=== PATIENT | male | born 1980 | race Caucasian/White ===

== ENCOUNTER 2017-02-05 10:33 | Observation (INO) | payer OTHER ==
[2017-02-05] MEDS ORDERED: Sodium Chloride 0.9% 1,000 ML IV STA (11:03)
[2017-02-05 11:06] LABS: ADD MANUAL DIFF? NO
[2017-02-05 11:11] LABS: BASO # 0.01 K/mm3 (0.0-2.0); BASO % 0.1 % (0.0-3.0); EOS % 0.4 % (1.5-5.0); GRAN # 7.54 (1.4-6.5); GRAN % 82.5 % (50.0-68.0); HEMATOCRIT 42.3 % (42.0-52.0); LYMPH % 10.9 % (22.0-35.0); MEAN CELL VOLUME 77.3 fL (80.0-105.0); MEAN CORPUSCULAR HEMOGLOBIN 27.1 pg (25.0-35.0); MEAN PLATELET VOLUME 10.4 fl (7.0-11.0); MONO # 0.6 (0.1-0.6); MONO % 6.1 % (1.0-6.0); PLATELET COUNT 265 10^3/uL (120.0-450.0); RED CELL DISTRIBUTION WIDTH 13.1 % (11.5-14.5); WHITE BLOOD COUNT 9.2 10^3/ul (4.5-11.0)
[2017-02-05 11:25] LABS: ALB/GLOB RATIO 1.3 (1.1-1.8); ALKALINE PHOSPHATASE 81 U/L (38-133); ALT/SGPT 61 U/L (7-56); AST/SGOT 31 U/L (15-59); BILIRUBIN,TOTAL 0.9 mg/dL (0.2-1.3); BLOOD UREA NITROGEN 18 mg/dL (7-21); CALCIUM 9.7 mg/dL (8.4-10.5); CARBON DIOXIDE 23 mmol/L (21-33); CHLORIDE 104 mmol/L (98-107); GFR AFRICAN-AMERICAN > 60; GLUCOSE,RANDOM 107 mg/dL (70-110); LIPASE 99 U/L (23-300); POTASSIUM 4.1 mmol/L (3.6-5.0); SODIUM 138 mmol/L (132-148); TOTAL PROTEIN 8.2 g/dL (5.8-8.3)
[2017-02-05] MEDS ORDERED: Morphine 2 mg/ml ISec IVP STA (11:43)
[2017-02-05] MEDS ORDERED: Iohexol 350 MG/100 ML VIAL ONE (11:49)
--- NOTE | 2017-02-05 13:54 | CT ---
PROCEDURE: CT Abdomen and Pelvis with contrast HISTORY: RLQ pain r/o Appy COMPARISON: None. TECHNIQUE: Contrast dose: Radiation dose: Total exam DLP = mGy-cm. This CT exam was performed using one or more of the following dose reduction techniques: Automated exposure control, adjustment of the mA and/or kV according to patient size, and/or use of iterative reconstruction technique. FINDINGS: LOWER THORAX: Unremarkable. LIVER: Unremarkable. No gross lesion or ductal dilatation. GALLBLADDER AND BILE DUCTS: Unremarkable. PANCREAS: Unremarkable. No gross lesion or ductal dilatation. SPLEEN: Unremarkable. ADRENALS: Unremarkable. No mass. KIDNEYS AND URETERS: Unremarkable. No hydronephrosis. No solid mass. VASCULATURE: Unremarkable. No aortic aneurysm. BOWEL: Unremarkable. No obstruction. No gross mural thickening. APPENDIX: Appendicolith present with enhancement and thickening of the appendix consistent with acute appendicitis.. PERITONEUM: Unremarkable. No free fluid. No free air. LYMPH NODES: Unremarkable. No enlarged lymph nodes. BLADDER: Unremarkable. REPRODUCTIVE: Unremarkable. BONES: No acute fracture. OTHER FINDINGS: None. IMPRESSION: Acute appendicitis.
[2017-02-05] MEDS ORDERED: HYDROmorphone 1 mg/ml ISec IVP STA (14:01)
--- NOTE | 2017-02-05 14:02 | ED PDOC ---
Arrival/HPI - General Chief Complaint: Abdominal Pain Time Seen by Provider: 02/05/17 11:01 Historian: Patient, Spouse - History of Present Illness Narrative History of Present Illness (Text): 02/05/17 11:58 This 36 yo male without significant medical history, presents to this ED c/o abdominal pain since last night. Patient stated pain started epigastric area last night. Pain is now located RLQ area. Patient denies vomiting, diarrhea or rectal bleeding. Time/Duration: Other (since last night) Symptom Course: Worsening Context: Home Past Medical History - Provider Review Nursing Documentation Reviewed: Yes - Infectious Disease Hx of Infectious Diseases: None - Psychiatric Hx Substance Use: No - Anesthesia Hx Anesthesia: No Hx Anesthesia Reactions: No Hx Malignant Hyperthermia: No Family/Social History - Physician Review Nursing Documentation Reviewed: Yes Family/Social History: No Known Family HX Smoking Status: Never Smoked Hx Alcohol Use: No Hx Substance Use: No Allergies/Home Meds Allergies/Adverse Reactions: Allergies No Known Allergies Allergy (Verified 02/05/17 10:47) Home Medications: Home Meds Medication Instructions Recorded Confirmed No Known Home Med 02/05/17 02/05/17 Review of Systems - Review of Systems Constitutional: Normal. absent: Fatigue, Weight Change, Fevers Eyes: Normal ENT: Normal Respiratory: Normal. absent: SOB, Cough, Sputum Cardiovascular: Normal. absent: Chest Pain, Palpitations Gastrointestinal: Abdominal Pain, Nausea. absent: Diarrhea, Vomiting Genitourinary Male: Normal. absent: Dysuria, Frequency, Hematuria Musculoskeletal: Normal Skin: Normal Neurological: Normal Endocrine: Normal Hemo/Lymphatic: Normal Psychiatric: Normal Physical Exam Vital Signs Temp Pulse Resp BP Pulse Ox 02/05/17 14:30 68 18 128/74 97 02/05/17 12:30 62 18 118/70 99 02/05/17 10:41 97.6 F 59 L 20 124/79 98 Temperature: Afebrile Blood Pressure: Normal Pulse: Regular Respiratory Rate: Normal Appearance: Positive for: Well-Appearing, Non-Toxic, Comfortable Pain Distress: None Mental Status: Positive for: Alert and Oriented X 3 - Systems Exam Head: Present: Atraumatic, Normocephalic Pupils: Present: PERRL Extroacular Muscles: Present: EOMI Conjunctiva: Present: Normal Mouth: Present: Moist Mucous Membranes Neck: Present: Normal Range of Motion Respiratory/Chest: Present: Clear to Auscultation, Good Air Exchange. No: Respiratory Distress, Accessory Muscle Use Cardiovascular: Present: Regular Rate and Rhythm, Normal S1, S2. No: Murmurs Abdomen: Present: Tenderness (mild RLQ tenderness), Normal Bowel Sounds, Rebound , Guarding, McBurney's Point Tender. No: Distention, Peritoneal Signs, Rovsing' s Sign Present, Hernias, Feeding Tubes Back: Present: Normal Inspection. No: CVA Tenderness Upper Extremity: Present: Normal Inspection. No: Cyanosis, Edema Lower Extremity: Present: Normal Inspection. No: Edema Neurological: Present: GCS=15, CN II-XII Intact, Speech Normal Skin: Present: Warm, Dry, Normal Color. No: Rashes Psychiatric: Present: Alert, Oriented x 3, Normal Insight, Normal Concentration Medical Decision Making ED Course and Treatment: 02/05/17 14:08 I spoke with surgical manager regarding CT scan which demonstrates Appendicitis I spoke with Dr. Gandara who is aware of case, and he agrees with admission. Re-evaluation Time: 14:10 Reassessment Condition: Re-examined, Improving,but remains with symptoms - Lab Interpretations Lab Results: 02/05/17 11:06 02/05/17 11:06 Lab Results 02/05/17 11:06: Sodium 138, Potassium 4.1, Chloride 104, Carbon Dioxide 23, Anion Gap 15, BUN 18, Creatinine 0.8, Est GFR ( Amer) > 60, Est GFR (Non- Af Amer) > 60, Random Glucose 107, Calcium 9.7, Total Bilirubin 0.9, AST 31, ALT 61 H, Alkaline Phosphatase 81, Total Protein 8.2, Albumin 4.6, Globulin 3.5 , Albumin/Globulin Ratio 1.3, Lipase 99 02/05/17 11:06: WBC 9.2, RBC 5.47, Hgb 14.8, Hct 42.3, MCV 77.3 L, MCH 27.1, MCHC 35.0, RDW 13.1, Plt Count 265, MPV 10.4, Gran % 82.5 H, Lymph % (Auto) 10.9 L, [place] % (Auto) 6.1 H, Eos % (Auto) 0.4 L, Baso % (Auto) 0.1, Gran # 7.54 H, Lymph # 1.0 L, [place] # 0.6, Eos # 0.0, Baso # 0.01 I have reviewed the lab results: Yes Interpretation: No clinic. lab abnormalty - RAD Interpretation Narrative RAD Interpretations (Text): 02/05/17 13:59 Accession No. : [id number] Patient Name / ID : NICOLETTE SÁNCHEZ / [id number] Exam Date : 02/05/2017 13:15:26 ( Approved ) Study Comment : Sex / Age : M / 36Y Creator : Trevon Mosqueda MD Dictator : Trevon Mosqueda MD Conveyor Feeder Offbearer : High Lead Yarder : Trevon Mosqueda MD Approver2 : Report Date : 02/05/2017 13:53:25 My Comment : PROCEDURE: CT Abdomen and Pelvis with contrast HISTORY: RLQ pain r/o Appy COMPARISON: None. TECHNIQUE: Contrast dose: Radiation dose: Total exam DLP = mGy-cm. This CT exam was performed using one or more of the following dose reduction techniques: Automated exposure control, adjustment of the mA and/or kV according to patient size, and/or use of iterative reconstruction technique. FINDINGS: LOWER THORAX: Unremarkable. LIVER: Unremarkable. No gross lesion or ductal dilatation. GALLBLADDER AND BILE DUCTS: Unremarkable. PANCREAS: Unremarkable. No gross lesion or ductal dilatation. SPLEEN: Unremarkable. ADRENALS: Unremarkable. No mass. KIDNEYS AND URETERS: Unremarkable. No hydronephrosis. No solid mass. VASCULATURE: Unremarkable. No aortic aneurysm. BOWEL: Unremarkable. No obstruction. No gross mural thickening. APPENDIX: Appendicolith present with enhancement and thickening of the appendix consistent with acute appendicitis.. PERITONEUM: Unremarkable. No free fluid. No free air. LYMPH NODES: Unremarkable. No enlarged lymph nodes. BLADDER: Unremarkable. REPRODUCTIVE: Unremarkable. BONES: No acute fracture. OTHER FINDINGS: None. IMPRESSION: Acute appendicitis. Radiology Orders: 02/05/17 11:42 ABD & PELVIS IV CONTRAST ONLY [CT] Stat - EKG Interpretation Interpreted by ED Physician: Yes (NSR @70 bpm. Normal interval. No ST changes) Type: 12 lead EKG Comparison: No previous EKG avail. - Medication Orders Current Medication Orders: Discontinued Medications Cefazolin Sodium (Ancef 1gm In Ns) 1 gm IVPB STAT STA PRN Reason: Protocol Stop: 02/05/17 14:08 Last Admin: 02/05/17 14:39 Dose: 1 gm Famotidine (Pepcid) 20 mg IVP STAT STA Stop: 02/05/17 11:04 Last Admin: 02/05/17 11:20 Dose: 20 mg Hydromorphone HCl (Dilaudid) 1 mg IVP STAT STA Stop: 02/05/17 14:02 Last Admin: 02/05/17 14:38 Dose: 1 mg Sodium Chloride (Sodium Chloride 0.9%) 1,000 mls @ 1,000 mls/hr IV .Q1H STA Stop: 02/05/17 12:02 Last Admin: 02/05/17 11:21 Dose: 1,000 mls/hr Iohexol (Omnipaque 350 100 Ml) Confirm Administered Dose 350 mg .ROUTE .STK-MED ONE Stop: 02/05/17 11:50 Morphine Sulfate (Morphine) 2 mg IVP STAT STA Stop: 02/05/17 11:44 Last Admin: 02/05/17 12:04 Dose: 2 mg Ondansetron HCl (Zofran Inj) 4 mg IVP STAT STA Stop: 02/05/17 11:04 Last Admin: 02/05/17 11:21 Dose: 4 mg Disposition/Present on Arrival - Present on Arrival Any Indicators Present on Arrival: No History of DVT/PE: No History of Uncontrolled Diabetes: No Urinary Catheter: No History of Decub. Ulcer: No History Surgical Site Infection Following: None - Disposition Have Diagnosis and Disposition been Completed?: Yes Diagnosis: Appendicitis, acute Disposition: HOSPITALIZED Disposition Time: 14:10 Patient Plan: Admission Patient Problems: Current Active Problems Problem Status Onset Appendicitis, acute Acute Condition: STABLE
[2017-02-05] MEDS: CeFAZolin 1 gm in NS 100ml IVPB STA ×2 (14:39→16:45)
--- NOTE | 2017-02-05 15:25 | CP.PCM.CON ---
History of Present Illness - History of Present Illness History of Present Illness: General Surgery Consult Note for Dr. Gandara CC: Abdominal pain X 1 day This is a 36M with no PMH who presents to the ED complaining of abdominal pain that began last night that was originally epigastric and over the course of the night migrated to the right lower quadrant. He last ate at 9pm last night and had grilled chicken. The patient reports nausea and dry heaves however denies emesis. He reports his last BM was yesterday. He is still passing flatus. He denies any fevers chills chest pain. The patient currently reports lack of apetite. He had a CT abdomen in the ED which was significant for acute appendicitis. PMH: None PSH: None ALL: None Social: Denies smoking, etoh or drug use. Review of Systems - Review of Systems All systems: reviewed and no additional remarkable complaints except Past Patient History - Infectious Disease Hx of Infectious Diseases: None - Past Social History Smoking Status: Never Smoked - PSYCHIATRIC Hx Substance Use: No - SURGICAL HISTORY Hx Surgeries: No - ANESTHESIA Hx Anesthesia: No Hx Anesthesia Reactions: No Hx Malignant Hyperthermia: No Meds Allergies/Adverse Reactions: Allergies Allergy/AdvReac Type Severity Reaction Status Date / Time No Known Allergies Allergy Verified 02/05/17 10:47 Physical Exam - Constitutional Appears: Non-toxic, No Acute Distress - Head Exam Head Exam: ATRAUMATIC, NORMOCEPHALIC - Eye Exam Eye Exam: EOMI - ENT Exam ENT Exam: Mucous Membranes Moist - Respiratory Exam Respiratory Exam: NORMAL BREATHING PATTERN - Cardiovascular Exam Cardiovascular Exam: REGULAR RHYTHM - GI/Abdominal Exam GI & Abdominal Exam: Soft, Tenderness. absent: Distended, Firm, Guarding, Hernia, Rebound, Rigid Additional comments: positive, rovsing and psoas sign Results - Vital Signs Recent Vital Signs: Last Vital Signs Temp 97.6 F 02/05/17 10:41 Pulse 68 02/05/17 14:30 Resp 18 02/05/17 14:30 BP 128/74 02/05/17 14:30 Pulse Ox 97 02/05/17 14:30 - Labs Result Diagrams: 02/05/17 11:06 02/05/17 11:06 - Imaging and Cardiology CT scan - abdomen Status: Image reviewed by me, Report reviewed by me Assessment & Plan - Assessment and Plan (Free Text) Assessment: This is a 36M with an acute appendicitis NPO Pain Mangement Antibiotics IVF OR this afternoon for appendectomy D/W Dr. Juliocesar Rogers PGY-1
[2017-02-05] MEDS ORDERED: Bupivacaine 0.25% Inj(30mL) ONE (15:55)
[2017-02-05] MEDS ORDERED: Bupivacaine 0.5% Inj(30mL) ONE (15:55)
[2017-02-05 16:09] LABS: INR 1.02 (0.93-1.08); PARTIAL THROMBOPLASTIN TIME 27.1 Seconds (23.7-30.8)
[2017-02-05] MEDS ORDERED: cefTRIAXone (Rocephin) 1 gm Inj ONE (16:14)
[2017-02-05] MEDS ORDERED: metroNIDAZOLE IV 500 mg/100 ml 500 MG/100 ML BAG ONE (16:15)
[2017-02-05] MEDS ORDERED: Propofol 10 mg/ml Inj (20 ML) ONE (16:21)
[2017-02-05] MEDS ORDERED: Lidocaine 1% Inj (20ml) ONE (16:21)
[2017-02-05] MEDS ORDERED: Succinylcholine 200 mg/10 ml Inj IV ONE (16:22)
[2017-02-05] MEDS ORDERED: Rocuronium 10 mg/ml (5 ml) ONE (16:22)
[2017-02-05 16:31] VITALS: BMI 30.7
[2017-02-05 16:31] LABS: PH,URINE 5.5 (4.7-8.0); URINE BILIRUBIN NEGATIVE (NEGATIVE); URINE BLOOD NEGATIVE (NEGATIVE); URINE GLUCOSE (UA) NEGATIVE (NEGATIVE); URINE KETONE NEGATIVE (NEGATIVE); URINE LEUKOCYTE ESTERASE NEGATIVE Leu/uL (NEGATIVE); URINE PROTEIN NEGATIVE mg/dL (<30 mg/dL); URINE UROBILINOGEN 0.2 E.U./dL (<1 E.U./dL)
[2017-02-05] MEDS ORDERED: Pneumococcal 23-Valent Vaccine IM ONE (16:31)
[2017-02-05 16:34] LABS: URINE APPEARANCE CLEAR (CLEAR); URINE COLOR YELLOW (YELLOW)
[2017-02-05] MEDS ORDERED: Neostigmine Methylsulfate 3mg/3ml Syringe IV ONE (17:05)
[2017-02-05] MEDS: HYDROmorphone 0.5 mg/0.5 ml ISec IVP PRN ×3 (18:20→18:55)
[2017-02-05] MEDS ORDERED: Lactated Ringer's 1,000 ML IV SCH (18:22)
--- NOTE | 2017-02-05 18:26 | PCM.SURG1 ---
Surgeon's Initial Post Op Note - Surgeon's Notes Surgeon: Dr. Gandara Operations Logistics Analyst: Dr. Rogers PGY-1 Type of Anesthesia: General Endo Pre-Operative Diagnosis: Acute appendicitis Operative Findings: See operative note Post-Operative Diagnosis: Acute appendicitis Operation Performed: Laparoscopic appendectomy Specimen/Specimens Removed: appendix Estimated Blood Loss: EBL {In ML}: 5 Blood Products Given: N/A Drains Used: No Drains Post-Op Condition: Good Date of Surgery/Procedure: 02/05/17 Time of Surgery/Procedure: 18:26
[2017-02-05] MEDS ORDERED: HYDROmorphone 0.5 mg/0.5 ml ISec ONE ×3 (18:27→18:56)
[2017-02-05] MEDS: Oxycodone/Acetaminophen 5/325 mg Tab PO PRN ×2 (19:59→23:30)
[2017-02-05] MEDS: metroNIDAZOLE IV 500 mg/100 ml 500 MG/100 ML BAG IVPB SCH (21:12)
[2017-02-06] MEDS: metroNIDAZOLE IV 500 mg/100 ml 500 MG/100 ML BAG IVPB SCH ×2 (05:35→13:05)
[2017-02-06] MEDS: Oxycodone/Acetaminophen 5/325 mg Tab PO PRN (05:36)
--- NOTE | 2017-02-06 06:43 | CP.PCM.PN ---
Subjective - Date & Time of Evaluation Date of Evaluation: 02/06/17 Time of Evaluation: 06:38 - Subjective Subjective: General Surgery Progress Note for Dr. Gandara This 36M was seen and examined this Am at bedside. he reports no acute events overnight. He has voided normally since surgery denies any flatus or BM. Tolerating clear liquids.Denies fevers, chills chest pain nausea vomiting. Reported some pain that responded well to the percocet. Objective - Vital Signs/Intake and Output Vital Signs (last 24 hours): Temp Pulse Resp BP Pulse Ox 98.3 F 58 L 14 106/65 94 L 02/05/17 19:05 02/05/17 19:05 02/05/17 19:05 02/05/17 19:05 02/05/17 19:05 Intake and Output: 02/05/17 02/06/17 18:59 06:59 Intake Total 100 120 Balance 100 120 - Medications Medications: Current Medications Hydromorphone HCl (Dilaudid) 0.5 mg IVP Q15M PRN PRN Reason: Pain, moderate (4-7) Last Admin: 02/05/17 18:55 Dose: 0.5 mg Metronidazole (Flagyl) 500 mg in 100 mls @ 100 mls/hr IVPB Q8 JERO PRN Reason: Protocol Last Admin: 02/06/17 05:35 Dose: 100 mls/hr Cefazolin Sodium 500 mg/ (Sodium Chloride) 50 mls @ 100 mls/hr IVPB Q8 JERO PRN Reason: Protocol Last Admin: 02/05/17 22:04 Dose: 100 mls/hr Ondansetron HCl (Zofran Odt) 4 mg PO Q8H PRN PRN Reason: Nausea/Vomiting Oxycodone/Acetaminophen (Percocet 5/325 Mg Tab) 1 tab PO Q4H PRN PRN Reason: Pain, moderate (4-7) Stop: 02/08/17 18:21 Last Admin: 02/06/17 05:36 Dose: 1 tab - Labs Labs: PT 11.0 Seconds (9.9-11.8) 02/05/17 15:05 INR 1.02 (0.93-1.08) 02/05/17 15:05 APTT 27.1 Seconds (23.7-30.8) 02/05/17 15:05 - Constitutional Appears: Non-toxic, No Acute Distress - Head Exam Head Exam: ATRAUMATIC, NORMOCEPHALIC - Eye Exam Eye Exam: EOMI - ENT Exam ENT Exam: Mucous Membranes Moist - Respiratory Exam Respiratory Exam: NORMAL BREATHING PATTERN - Cardiovascular Exam Cardiovascular Exam: REGULAR RHYTHM - GI/Abdominal Exam GI & Abdominal Exam: Soft, Tenderness. absent: Distended, Firm, Guarding, Rigid Additional comments: Inscisions with glue in place well approximated non erythematous appropriately tender - Neurological Exam Neurological Exam: Alert, Awake - Psychiatric Exam Psychiatric exam: Normal Affect, Normal Mood - Skin Skin Exam: Dry, Intact, Warm Assessment and Plan - Assessment and Plan (Free Text) Assessment: This is a 36M who is POD#1 s/p lap appy and doing well Advance diet Discharge home today tolerating continue ABX Continue pain control Will discuss with Dr. Juliocesar Rogers PGY-5 [phone]
--- NOTE | 2017-02-06 06:47 | CP.PCM.HP ---
History of Present Illness - History of Present Illness History of Present Illness: - History of Present Illness History of Present Illness: General Surgery Consult Note for Dr. Gandara CC: Abdominal pain X 1 day This is a 36M with no PMH who presents to the ED complaining of abdominal pain that began last night that was originally epigastric and over the course of the night migrated to the right lower quadrant. He last ate at 9pm last night and had grilled chicken. The patient reports nausea and dry heaves however denies emesis. He reports his last BM was yesterday. He is still passing flatus. He denies any fevers chills chest pain. The patient currently reports lack of apetite. He had a CT abdomen in the ED which was significant for acute appendicitis. PMH: None PSH: None ALL: None Social: Denies smoking, etoh or drug use. Review of Systems - Review of Systems All systems: reviewed and no additional remarkable complaints except Past Patient History - Infectious Disease Hx of Infectious Diseases: None - Past Social History Smoking Status: Never Smoked - PSYCHIATRIC Hx Substance Use: No - SURGICAL HISTORY Hx Surgeries: No - ANESTHESIA Hx Anesthesia: No Hx Anesthesia Reactions: No Hx Malignant Hyperthermia: No Meds Allergies/Adverse Reactions: Allergies Allergy/AdvReac Type Severity Reaction Status Date / Time No Known Allergies Allergy Verified 02/05/17 10:47 Physical Exam - Constitutional Appears: Non-toxic, No Acute Distress - Head Exam Head Exam: ATRAUMATIC, NORMOCEPHALIC - Eye Exam Eye Exam: EOMI - ENT Exam ENT Exam: Mucous Membranes Moist - Respiratory Exam Respiratory Exam: NORMAL BREATHING PATTERN - Cardiovascular Exam Cardiovascular Exam: REGULAR RHYTHM - GI/Abdominal Exam GI & Abdominal Exam: Soft, Tenderness. absent: Distended, Firm, Guarding, Hernia, Rebound, Rigid Additional comments: positive, rovsing and psoas sign Results - Vital Signs Recent Vital Signs: Last Vital Signs Temp 97.6 F 02/05/17 10:41 Pulse 68 02/05/17 14:30 Resp 18 02/05/17 14:30 BP 128/74 02/05/17 14:30 Pulse Ox 97 02/05/17 14:30 - Labs Result Diagrams: 02/05/17 11:06 02/05/17 11:06 - Imaging and Cardiology CT scan - abdomen Status: Image reviewed by me, Report reviewed by me Assessment & Plan - Assessment and Plan (Free Text) Assessment: This is a 36M with an acute appendicitis NPO Pain Mangement Antibiotics IVF OR this afternoon for appendectomy D/W Dr. Juliocesar Rogers PGY-1 Present on Admission - Present on Admission Any Indicators Present on Admission: No Past Patient History - Infectious Disease Hx of Infectious Diseases: None - Past Social History Smoking Status: Never Smoked - HEMATOLOGICAL/ONCOLOGICAL Hx Blood Transfusions: No Hx Blood Transfusion Reaction: No - MUSCULOSKELETAL/RHEUMATOLOGICAL Hx Falls: No - PSYCHIATRIC Hx Substance Use: No - SURGICAL HISTORY Hx Surgeries: Yes (tonsillectomy at 9 yrs old) - ANESTHESIA Hx Anesthesia Reactions: No Hx Malignant Hyperthermia: No Meds Allergies/Adverse Reactions: Allergies Allergy/AdvReac Type Severity Reaction Status Date / Time No Known Allergies Allergy Verified 02/05/17 10:47 Results - Vital Signs Recent Vital Signs: Last Vital Signs Temp 98.3 F 02/05/17 19:05 Pulse 58 L 02/05/17 19:05 Resp 14 02/05/17 19:05 BP 106/65 02/05/17 19:05 Pulse Ox 94 L 02/05/17 19:05 - Labs Result Diagrams: 02/05/17 11:06 02/05/17 11:06 Labs: Laboratory Results - last 24 hr 02/05/17 02/05/17 02/05/17 15:05 15:05 16:20 PT 11.0 INR 1.02 APTT 27.1 Urine Color Yellow Urine Appearance Clear Urine pH 5.5 Ur Specific [place] 1.015 Urine Protein Negative Urine Glucose (UA) Negative Urine Ketones Negative Urine Blood Negative Urine Nitrate Negative Urine Bilirubin Negative Urine Urobilinogen 0.2 Ur Leukocyte Esterase Negative Blood Type B POSITIVE Antibody Screen Negative BBK History Checked No verified bt
[2017-02-06 08:00] LABS: ADD MANUAL DIFF? NO
[2017-02-06 08:16] LABS: BASO # 0.01 K/mm3 (0.0-2.0); BASO % 0.1 % (0.0-3.0); EOS # 0.1 (0.0-0.7); EOS % 1.3 % (1.5-5.0); GRAN # 5.21 (1.4-6.5); GRAN % 68.9 % (50.0-68.0); LYMPH # 1.7 (1.2-3.4); LYMPH % 21.8 % (22.0-35.0); MEAN CELL VOLUME 78.5 fL (80.0-105.0); MEAN CORPUSCULAR HEMOGLOBIN 26.8 pg (25.0-35.0); MEAN CORPUSCULAR HGB CONC 34.1 g/dl (31.0-37.0); MEAN PLATELET VOLUME 10.6 fl (7.0-11.0); MONO # 0.6 (0.1-0.6); MONO % 7.9 % (1.0-6.0); PLATELET COUNT 249 10^3/uL (120.0-450.0); RED CELL DISTRIBUTION WIDTH 13.7 % (11.5-14.5); WHITE BLOOD COUNT 7.6 10^3/ul (4.5-11.0)
[2017-02-06 08:20] VITALS: BP 102/54; PULSE 68; RESP 18; TEMP 98.8; O2SAT 96
[2017-02-06 08:27] LABS: ALB/GLOB RATIO 1.2 (1.1-1.8); ALKALINE PHOSPHATASE 69 U/L (38-133); ALT/SGPT 41 U/L (7-56); AST/SGOT 24 U/L (15-59); BILIRUBIN,TOTAL 1.2 mg/dL (0.2-1.3); BLOOD UREA NITROGEN 10 mg/dL (7-21); CALCIUM 8.8 mg/dL (8.4-10.5); CARBON DIOXIDE 26 mmol/L (21-33); CHLORIDE 103 mmol/L (98-107); GFR AFRICAN-AMERICAN > 60; GLUCOSE,RANDOM 99 mg/dL (70-110); POTASSIUM 3.6 mmol/L (3.6-5.0); SODIUM 137 mmol/L (132-148); TOTAL PROTEIN 7.1 g/dL (5.8-8.3)
[2017-02-06] MEDS ORDERED: Oxycodone/Acetaminophen 5/325 mg Tab PO STA (08:34)
[2017-02-06] MEDS ORDERED: HYDROmorphone 0.5 mg/0.5 ml ISec IVP PRN (08:35)
--- NOTE | 2017-02-11 07:53 | OP ---
PROCEDURE DATE: 02/05/2017 PREOPERATIVE DIAGNOSIS: Acute appendicitis. POSTOPERATIVE DIAGNOSIS: Acute appendicitis. OPERATION PERFORMED: Appendectomy, laparoscope. DESCRIPTION OF PROCEDURE: In the operating room, the patient was identified by name, number, procedu re, laterality and the abdomen was accessed after a successful timeout, through the umbilicus with a Veress needle followed by the Visiport. The abdomen explored. There was nothing untoward, there was an inflamed appendix, which was followed with the CAT scan. The base was identified. The tip was i dentified. The mesentery was taken down with the Harmonic scalpel, exposing the base of the appendix , it was then taken with the Endo-NICOLE and the 5 mm scope. It was placed in a bag and removed without incident. There is a little bit of bleeding that responded to the mesentery dissection and the inci katharine closed with an EndoStitch after the abdomen was dried, explored; there was nothing else untoward . The patient was taken to recovery room in good condition after sponge and needle counts declared c orrect. The wound was injected with Marcaine. Incisions having been closed with PDS and Dermabond. Kaden Gandara MD cc: [phone] TT: 02/10/2017 21:41:58 jn
--- NOTE | 2017-02-21 08:36 | OP ---
PROCEDURE DATE: 02/05/2017 PREOPERATIVE DIAGNOSIS: Acute appendicitis. POSTOPERATIVE DIAGNOSIS: Acute appendicitis. OPERATION PERFORMED: Laparoscopic appendectomy. DESCRIPTION OF PROCEDURE: In the operating room, the patient was identified by name, number, procedu re, my hong and his consent and wristband. The abdomen was prepped and draped in usual manner. The abdomen was accessed through an infraumbilical placement of a port using the Veress needle and the Visiport, which was placed without incident. Looking around, there was nothing else untoward. T he appendix was dilated, but not really inflamed. The tip of the appendix was ascertained through th e CAT scan. The tip was found. It was brought up in the air and the mesentery serially scored and d ivided with the Harmonic scalpel. Converting to a 5 mm scope, the appendiceal base was taken with an Endo-NICOLE through the umbilical por t. It was placed in a bag and removed without dilation. The abdomen was explored. There was nothin g else untoward. The incision was closed with an EndoStitch of 2-0 PDS. The wounds were injected wi th Marcaine. Looking around one more time, there was nothing untoward. The trocars were removed und er direct vision and there was nothing untoward. The incisions were tied. The wounds were dressed. The patient taken to recovery room in good condition after sponge and needle count was declared miguel angel ect. Kaden Gandara MD cc: [id number] TT: 02/20/2017 16:15:39 robel
== END 2017-02-06 15:57 | disposition home or self-care (01) ==
LOC: ED 10:33 → ERH 14:18 → 5RSO 15:10 → ERH 15:13 → 5RSO 15:32
PROVIDERS: ADMIT Surgery; ATTEND Surgery
DX: K35.80 Unspecified acute appendicitis (principal); R40.2412 Glasgow coma scale score 13-15, at arrival to emergency department
CPT/HCPCS: 36415; 44970; 74177; 80053; 81003; 83690; 85025; 85610; 85730; 86850; 86900; 88304; 96361; 96365; 96375; 96376; 99284; G0378; J0330; J0690; J0696; J1170; J2270; J2405; J2704; J2710; J3010; J7040; Q9967

== ENCOUNTER 2017-02-11 20:59 | Emergency (ER) | payer OTHER ==
[2017-02-11 21:00] VITALS: BMI 30.7
[2017-02-11] MEDS ORDERED: Morphine 4 mg/ml ISec IVP STA (21:30)
--- NOTE | 2017-02-11 21:30 | ED PDOC ---
Arrival/HPI <Trevon Soares - Last Filed: 02/12/17 01:07> - General Historian: Patient <Chato Calles A - Last Filed: 02/12/17 02:35> - General Chief Complaint: Abdominal Pain Time Seen by Provider: 02/11/17 21:19 - History of Present Illness Narrative History of Present Illness (Text): 02/11/17 21:27 36yo male with history of recent appendectomy present with complaint of pain around the laproscopic site. He states surgery was done here on Tuesday by Dr. Gandara. He came back today because he started having pain in the area 3days ago. Notes that he had normal BM this morning. He denies associated nausea, vomiting, diarrhea, constipation, melena, hematochezia, hematemesis, fever, chills, (Chato Calles A) Past Medical History - Provider Review Nursing Documentation Reviewed: Yes - Infectious Disease Hx of Infectious Diseases: None - Hematological/Oncological Hx Blood Transfusions: No Hx Blood Transfusion Reaction: No - Musculoskeletal/Rheumatological Hx Falls: No - Psychiatric Hx Psychophysiologic Disorder: No Hx Substance Use: No - Surgical History Hx Appendectomy: Yes - Anesthesia Hx Anesthesia Reactions: No Hx Malignant Hyperthermia: No <Chato Calles A - Last Filed: 02/12/17 02:35> Family/Social History - Physician Review Nursing Documentation Reviewed: Yes Family/Social History: Unknown Family HX Smoking Status: Never Smoked Hx Alcohol Use: No Hx Substance Use: No <Chato Calles A - Last Filed: 02/12/17 02:35> Allergies/Home Meds <Trevon Soares - Last Filed: 02/12/17 01:07> <Chato Calles A - Last Filed: 02/12/17 02:35> Allergies/Adverse Reactions: Allergies No Known Allergies Allergy (Verified 02/11/17 21:03) Review of Systems - Physician Review All systems were reviewed & negative as marked: Yes - Review of Systems Constitutional: Normal Eyes: Normal ENT: Normal Respiratory: Normal Cardiovascular: Normal Gastrointestinal: Abdominal Pain. absent: Constipation, Diarrhea, Nausea, Vomiting, Hematochezia, Hematemesis Genitourinary Male: Normal Musculoskeletal: Normal Skin: Normal Neurological: Normal Endocrine: Normal Hemo/Lymphatic: Normal Psychiatric: Normal <Chato Calles A - Last Filed: 02/12/17 02:35> Physical Exam Vital Signs Reviewed: Yes Temperature: Afebrile Blood Pressure: Normal Pulse: Regular Respiratory Rate: Normal Appearance: Positive for: Well-Appearing, Non-Toxic, Comfortable Pain Distress: None Mental Status: Positive for: Alert and Oriented X 3 - Systems Exam Head: Present: Atraumatic, Normocephalic Pupils: Present: PERRL Extroacular Muscles: Present: EOMI Conjunctiva: Present: Normal Mouth: Present: Moist Mucous Membranes Neck: Present: Normal Range of Motion Respiratory/Chest: Present: Clear to Auscultation, Good Air Exchange. No: Respiratory Distress, Accessory Muscle Use Cardiovascular: Present: Regular Rate and Rhythm, Normal S1, S2. No: Murmurs Abdomen: Present: Tenderness (PEriumbilical area, laproscopic site worse on the RLQ area with mild distention noted), Distention (Mild distention of RLQ), Normal Bowel Sounds, Guarding, Other (soft). No: Peritoneal Signs, Rebound, McBurney's Point Tender, Rovsing's Sign Present Back: Present: Normal Inspection Upper Extremity: Present: Normal Inspection. No: Cyanosis, Edema Lower Extremity: Present: Normal Inspection. No: Edema Neurological: Present: GCS=15, CN II-XII Intact, Speech Normal Skin: Present: Warm, Dry, Normal Color. No: Rashes Psychiatric: Present: Alert, Oriented x 3, Normal Insight, Normal Concentration <Chato Calles A - Last Filed: 02/12/17 02:35> Vital Signs Temp Pulse Resp BP Pulse Ox 02/12/17 01:08 98 F 76 20 126/72 100 02/11/17 23:00 70 18 121/80 100 02/11/17 21:14 98.6 F 66 18 120/74 99 02/11/17 21:04 98.6 F 66 16 120/74 98 Medical Decision Making <Trevon Soares - Last Filed: 02/12/17 01:07> <Chato Calles - Last Filed: 02/12/17 02:35> ED Course and Treatment: 02/12/17 02:32 Pt parented for stated history. He was also seen in ED by the surgical services coordinator Shakila, who recommended Abdominal CT. Lab was unremarkable. On re evaluation pt states his pain improved. He was ambulatory in ED without distress. abdominal CT IMPRESSION: Enteric contrast in the mid small bowel the time of imaging, limiting evaluation distally. No small bowel obstruction. Status post appendectomy. Retained fecal material in the right colon. The left colon is collapsed. Trace fluid/mesenteric stranding. Focal fluid collection with air locule at the superior aspect of umbilicus. Correlate clinically to exclude concern for infectio enrollment services vice president discussed result was the pt. He was DC home with colace. advised to increase his fiber intake. Advised to f/u with Dr. Gandara. ([facility]) - Lab Interpretations Lab Results: 02/11/17 21:56 02/11/17 21:56 Lab Results 02/11/17 21:56: Sodium 138, Potassium 4.3, Chloride 100, Carbon Dioxide 29, Anion Gap 13, BUN 19, Creatinine 0.9, Est GFR ( Amer) > 60, Est GFR (Non- Af Amer) > 60, Random Glucose 87, Calcium 9.2, Total Bilirubin 0.5, AST 31, ALT 51, Alkaline Phosphatase 70, Total Protein 8.1, Albumin 4.6, Globulin 3.5, Albumin/Globulin Ratio 1.3, Lipase 142 02/11/17 21:56: PT 10.9, INR 1.01, APTT 27.7 02/11/17 21:56: WBC 4.7 D, RBC 5.24, Hgb 14.2, Hct 42.4, MCV 80.9, MCH 27.1, MCHC 33.5, RDW 13.5, Plt Count 277, MPV 10.7, Gran % 38.7 L, Lymph % (Auto) 48.6 H, [place] % (Auto) 7.2 H, Eos % (Auto) 5.1 H, Baso % (Auto) 0.4, Gran # 1.82 , Lymph # 2.3, [place] # 0.3, Eos # 0.2, Baso # 0.02 - RAD Interpretation Radiology Orders: 02/11/17 21:30 ABD PELVIS PO & IV CONTRAST [CT] Stat - Medication Orders Current Medication Orders: Discontinued Medications Iohexol (Omnipaque 240 (50 Ml)) Confirm Administered Dose 50 ml .ROUTE .AesRx ONE Stop: 02/11/17 21:40 Iohexol (Omnipaque 350 100 Ml) Confirm Administered Dose 350 mg .ROUTE .STK-MED ONE Stop: 02/11/17 22:25 Morphine Sulfate (Morphine) 4 mg IVP STAT STA Stop: 02/11/17 21:31 Last Admin: 02/11/17 21:55 Dose: 4 mg - PA / PRESS TOOL [employer]KER / Resident Statement / has reviewed & agrees with the documentation as recorded. <Trevon Soares - Last Filed: 02/12/17 01:07> Disposition/Present on Arrival <Trevon Soares - Last Filed: 02/12/17 01:07> - Present on Arrival Any Indicators Present on Arrival: No History of DVT/PE: No History of Uncontrolled Diabetes: No Urinary Catheter: No History of Decub. Ulcer: No History Surgical Site Infection Following: None - Disposition Have Diagnosis and Disposition been Completed?: Yes Disposition Time: 00:40 Patient Plan: Discharge <Chato Calles - Last Filed: 02/12/17 02:35> - Disposition Diagnosis: Abdominal pain, Constipation Disposition: HOME/ ROUTINE Condition: STABLE Discharge Instructions (ExitCare): Constipation (ED), Abdominal Pain (ED) Additional Instructions: Increase your fiber intake Follow up with your Doctor/surgeon Return to ED for any new or worsening symptoms Prescriptions: Docusate Sodium [Colace] 100 mg PO TID #15 capsule Referrals: PCP,NO [Primary Care Provider] - Follow up with primary [facility] [Outside] - Follow up with primary
--- NOTE | 2017-02-11 21:35 | CP.PCM.PCO ---
Physician Communication Note - Physician Communication Note Physician Communication Note: RLQ pain, gaurding on exam. needs CT abd w/ PO and IV contrast.
[2017-02-11] MEDS ORDERED: Iohexol 240 (50 ml) ONE (21:39)
[2017-02-11] MEDS ORDERED: Iohexol 350 MG/100 ML VIAL ONE (22:24)
[2017-02-11 22:33] LABS: ADD MANUAL DIFF? NO
[2017-02-11 22:41] LABS: BASO # 0.02 K/mm3 (0.0-2.0); BASO % 0.4 % (0.0-3.0); EOS # 0.2 (0.0-0.7); EOS % 5.1 % (1.5-5.0); GRAN # 1.82 (1.4-6.5); GRAN % 38.7 % (50.0-68.0); HEMATOCRIT 42.4 % (42.0-52.0); LYMPH # 2.3 (1.2-3.4); LYMPH % 48.6 % (22.0-35.0); MEAN CELL VOLUME 80.9 fL (80.0-105.0); MEAN CORPUSCULAR HEMOGLOBIN 27.1 pg (25.0-35.0); MEAN CORPUSCULAR HGB CONC 33.5 g/dl (31.0-37.0); MEAN PLATELET VOLUME 10.7 fl (7.0-11.0); MONO # 0.3 (0.1-0.6); MONO % 7.2 % (1.0-6.0); PLATELET COUNT 277 10^3/uL (120.0-450.0); RED CELL DISTRIBUTION WIDTH 13.5 % (11.5-14.5); WHITE BLOOD COUNT 4.7 10^3/ul (4.5-11.0)
[2017-02-11 22:46] LABS: ALB/GLOB RATIO 1.3 (1.1-1.8); ALKALINE PHOSPHATASE 70 U/L (38-133); ALT/SGPT 51 U/L (7-56); AST/SGOT 31 U/L (15-59); BILIRUBIN,TOTAL 0.5 mg/dL (0.2-1.3); BLOOD UREA NITROGEN 19 mg/dL (7-21); CALCIUM 9.2 mg/dL (8.4-10.5); CARBON DIOXIDE 29 mmol/L (21-33); CHLORIDE 100 mmol/L (98-107); GFR AFRICAN-AMERICAN > 60; GLUCOSE,RANDOM 87 mg/dL (70-110); LIPASE 142 U/L (23-300); POTASSIUM 4.3 mmol/L (3.6-5.0); SODIUM 138 mmol/L (132-148); TOTAL PROTEIN 8.1 g/dL (5.8-8.3)
[2017-02-11 22:47] LABS: INR 1.01 (0.93-1.08); PARTIAL THROMBOPLASTIN TIME 27.7 Seconds (23.7-30.8)
[2017-02-11 23:29] VITALS: O2SAT 100
--- NOTE | 2017-02-12 00:05 | CT ---
EXAM: CT Abdomen and Pelvis With Intravenous Contrast CLINICAL HISTORY: 36 years old, male; Pain; Abdominal pain; Localized; Right lower quadrant (rlq); Patient HX: Appendectomy last week. Rlq pain TECHNIQUE: Axial computed tomography images of the abdomen and pelvis with intravenous contrast. This CT exam was performed using one or more of the following dose reduction techniques: automated exposure control, adjustment of the mA and/or kV according to patient size, and/or use of iterative reconstruction technique. Coronal and sagittal reformatted images were created and reviewed. CONTRAST: 100 mL of OMNI administered intravenously. COMPARISON: CT - ABD PELVIS IV CONTRAST ONLY 02/05/2017 1:15:26 PM FINDINGS: Atelectasis. The liver, spleen, pancreas and adrenal glands demonstrate no acute abnormalities. The kidneys are symmetric with no evidence of hydronephrosis. The aorta is unremarkable. Enteric contrast in the mid small bowel the time of imaging, limiting evaluation distally. No small bowel obstruction. Status post appendectomy. Retained fecal material in the right colon. The left colon is collapsed. Trace fluid/mesenteric stranding. No free air. Focal fluid collection with air locule at the superior aspect of umbilicus. Correlate clinically to exclude concern for infection. IMPRESSION: Enteric contrast in the mid small bowel the time of imaging, limiting evaluation distally. No small bowel obstruction. Status post appendectomy. Retained fecal material in the right colon. The left colon is collapsed. Trace fluid/mesenteric stranding. Focal fluid collection with air locule at the superior aspect of umbilicus. Correlate clinically to exclude concern for infection.
--- NOTE | 2017-02-12 00:43 | CP.PCM.PCO ---
Physician Communication Note - Physician Communication Note Physician Communication Note: CT consistent w opoid fecal distention R Colon
[2017-02-12 01:09] VITALS: BP 126/72; PULSE 76; RESP 20; TEMP 98
--- NOTE | 2017-02-12 01:39 | CP.PCM.CON ---
History of Present Illness - History of Present Illness History of Present Illness: Surgery: Dr. Messina CC: RLQ pain pod6 from lap appy HPI: Patient presented with 3 day history of RLQ abdominal pain, crampy in nature that comes and goes. History significant for [employer] appy last Tuesday. He states he had a bowel movement today which seemed normal. He denies f/c/n/v. He is tolerating diet. He reports taking percocet and antibiotic as prescribed at home. PMH: none [facility] Review of Systems - Review of Systems All systems: reviewed and no additional remarkable complaints except Review of Systems: unless stated in HPI Past Patient History - Infectious Disease Hx of Infectious Diseases: None - Past Social History Smoking Status: Never Smoked - HEMATOLOGICAL/ONCOLOGICAL Hx Blood Transfusions: No Hx Blood Transfusion Reaction: No - MUSCULOSKELETAL/RHEUMATOLOGICAL Hx Falls: No - PSYCHIATRIC Hx Psychophysiologic Disorder: No Hx Substance Use: No - SURGICAL HISTORY Hx Appendectomy: Yes - ANESTHESIA Hx Anesthesia Reactions: No Hx Malignant Hyperthermia: No Meds Home Medications: Home Medication List Medication Instructions Recorded Confirmed Type Docusate Sodium [Colace] 100 mg PO TID #15 capsule 02/12/17 Rx Allergies/Adverse Reactions: Allergies Allergy/AdvReac Type Severity Reaction Status Date / Time No Known Allergies Allergy Verified 02/11/17 21:03 Physical Exam - Constitutional Appears: Well, Non-toxic, No Acute Distress - Head Exam Head Exam: ATRAUMATIC, NORMOCEPHALIC - Eye Exam Eye Exam: EOMI, Normal appearance - ENT Exam ENT Exam: Mucous Membranes Moist - Respiratory Exam Respiratory Exam: NORMAL BREATHING PATTERN. absent: Respiratory Distress - Cardiovascular Exam Cardiovascular Exam: REGULAR RHYTHM. absent: Tachycardia - GI/Abdominal Exam GI & Abdominal Exam: Distended, Soft, Tenderness (RLQ) Additional comments: incisions CDI w/ dermabond dressing. minimal redness around rosi-umbilical site. - Extremities Exam Extremities exam: Positive for: normal inspection. Negative for: calf tenderness Results - Vital Signs Recent Vital Signs: Last Vital Signs Temp 98 F 02/12/17 01:08 Pulse 76 02/12/17 01:08 Resp 20 02/12/17 01:08 BP 126/72 02/12/17 01:08 Pulse Ox 100 02/12/17 01:08 - Labs Result Diagrams: 02/11/17 21:56 02/11/17 21:56 Labs: Laboratory Results - last 24 hr 02/11/17 02/11/17 02/11/17 21:56 21:56 21:56 WBC 4.7 D RBC 5.24 Hgb 14.2 Hct 42.4 MCV 80.9 MCH 27.1 MCHC 33.5 RDW 13.5 Plt Count 277 MPV 10.7 Gran % 38.7 L Lymph % (Auto) 48.6 H [place] % (Auto) 7.2 H Eos % (Auto) 5.1 H Baso % (Auto) 0.4 Gran # 1.82 Lymph # 2.3 [place] # 0.3 Eos # 0.2 Baso # 0.02 PT 10.9 INR 1.01 APTT 27.7 Sodium 138 Potassium 4.3 Chloride 100 Carbon Dioxide 29 Anion Gap 13 BUN 19 Creatinine 0.9 Est GFR ( Amer) > 60 Est GFR (Non-Af Amer) > 60 Random Glucose 87 Calcium 9.2 Total Bilirubin 0.5 AST 31 ALT 51 Alkaline Phosphatase 70 Total Protein 8.1 Albumin 4.6 Globulin 3.5 Albumin/Globulin Ratio 1.3 Lipase 142 - Impressions Impression: CT scan consistant w/ constipation, stool in cecum Assessment & Plan - Assessment and Plan (Free Text) Assessment: 36 y/o male POD6 from lap appy w/ RLQ abdominal pain 2/2 opiod induced constipation Plan: -discontinue percocet -can take tylenol or motrin at home for pain -add colace BID po -cont abx as prescribed -return to ED if symptoms worsen or persist -d/w ER attending -further surgical recs as per Dr. Messina communication note AKWhite PGY1
== END 2017-02-12 01:10 | disposition home or self-care (01) ==
LOC: ED 20:59
DX: R10.9 Unspecified abdominal pain (principal); K59.00 Constipation, unspecified
CPT/HCPCS: 74177; 80053; 83690; 85025; 85610; 85730; 96374; 99285; J2270; Q9966; Q9967